=== PATIENT | female | born 1980 | race Hispanic/Latino ===

== ENCOUNTER 2018-01-05 08:14 | Day surgery (SDC) | payer MEDICARE ==
--- NOTE | 2018-01-04 16:54 | Short Stay Summary ---
Short Stay Documentation Date of service: 01/05/18 Narrative H&P: 37y/o with chronic pelvic pain. The patient has attempted medical management without improvement in her symptoms. Her pelvic ultrasound was significant for small ovarian cysts. Patient has been reassessed/reevaluated/re-examined. H&P has been reviewed. No interval changes. - History Principal diagnosis: Chronic pelvic pain Past Medical History: other (anxiety disorder) Past Surgical History: Other (neck surgery) Social history: single - Allergies and Medications Current Medications: Allergies Penicillins Allergy (Verified 12/31/17 12:41) Anaphylaxis ALSO CAUSES HIVES Sulfa (Sulfonamide Antibiotics) Allergy (Verified 12/31/17 12:41) Anaphylaxis ALSO CAUSES HIVES Home Medications Medication Instructions Recorded Confirmed Last Taken Type Gabapentin [Neurontin] 300 mg PO PRN PRN 11/26/16 12/31/17 12/02/16 02:00 History Rizatriptan Benzoate [Rizatriptan] 10 mg PO PRN PRN 12/31/17 12/31/17 Unknown History - Physical exam General appearance: no acute distress Integumentary: no rash HEENT: Atraumatic Lungs: Clear to auscultation Breasts: deferred Heart: Regular rate Gastrointestinal: normal Female Genitourinary: deferred Rectal Exam: deferred - Brief post op/procedure progress note Date of procedure: 01/05/18 Pre-op diagnosis: chronic pelvic pain Post-op diagnosis: same Procedure: Laparoscopy Ovarian cortex biopsy Left and right ovarian cystotomy Anesthesia: GETA Surgeon: MARIA TERESA CRISOSTOMO Estimated blood loss: minimal Pathology: list (ovarian cortex and ovarian cyst wall) Specimen disposition: to lab Condition: stable - Hospital course Hospital course: The patient was admitted the day of surgery and underwent a laparoscopy. Please see operative note for details of surgery. Postoperative course was uneventful. - Disposition Condition at discharge: Good Disposition: [id number] TO HOME OR SELFCARE Short Stay Discharge Plan Activity: other (pelvic rest for 1 week) Diet: regular Additional Instructions: Patient may follow up with Dr. Fitzgerald in 2-4 weeks Prescriptions: Ibuprofen [Motrin] 800 mg PO Q8HR PRN #60 tablet PRN Reason: Pain oxyCODONE /ACETAMINOPHEN [Percocet 5/325] 1 tab PO Q6HR PRN #30 tablet PRN Reason: Pain
--- NOTE | 2018-01-05 08:44 | Anesthesia Consultation ---
Anesthesia Consult and Med Hx Date of service: 01/05/18 - Airway Anesthetic Teeth Evaluation: Good ROM Head & Neck: Adequate Mental/Hyoid Distance: Adequate Mallampati Class: Class I Intubation Access Assessment: Good - Pulmonary Exam CTA: Yes - Cardiac Exam Cardiac Exam: RRR - Pre-Operative Health Status ASA Pre-Surgery Classification: ASA2 Proposed Anesthetic Plan: General - Pulmonary Hx Smoking: Yes Hx Pneumonia: Yes ("walking" pneumonia 10/2017 resolved) - Central Nervous System Hx Back Pain: Yes (NECK AND BACK PAIN, numb hands ) Hx Psychiatric Problems: Yes (PTSD) - Endocrine Hx Hypothyroidism: No Hx Hyperthyroidism: No - Hematic Hx Anemia: No Hx Sickle Cell Disease: No - Other Systems Hx Alcohol Use: Yes (occas) Hx Cancer: No
--- NOTE | 2018-01-05 08:44 | Anesthesia Day of Surgery ---
Anesthesia Day of Surgery - Day of Surgery Patient Examined: Yes Patient H&P Reviewed: Yes Patient is NPO: Yes
[2018-01-05] MEDS ORDERED: TORADOL IV PRN (08:45)
[2018-01-05] MEDS ORDERED: LACTATED RINGERS 1,000 ML IV SCH (09:00)
[2018-01-05] MEDS ORDERED: VERSED IV NR (09:00)
[2018-01-05] MEDS ORDERED: NACL BACTERIOSTATIC INFILTRATI ONE (09:26)
[2018-01-05] MEDS ORDERED: DILAUDID ONE (10:33)
[2018-01-05] MEDS ORDERED: DIPRIVAN 10 MG/ML IV ONE (10:33)
[2018-01-05] MEDS ORDERED: XYLOCAINE MPF 2% ONE (10:34)
[2018-01-05] MEDS ORDERED: ZEMURON IV ONE (10:34)
[2018-01-05] MEDS ORDERED: MARCAINE 0.5% 30 ML INFILTRATI ONE (10:39)
[2018-01-05] MEDS ORDERED: ZOFRAN ONE (11:17)
[2018-01-05] MEDS ORDERED: ROBINUL ONE ×2 (11:27→11:36)
[2018-01-05] MEDS ORDERED: NEOSTIGMINE ONE (11:27)
[2018-01-05] MEDS ORDERED: TORADOL ONE (11:28)
[2018-01-05] MEDS ORDERED: NACL 0.9% IR ONE (11:38)
[2018-01-05] MEDS ORDERED: MARCAINE 0.5% INFILTRATI ONE (11:38)
--- NOTE | 2018-01-05 11:49 | Operative Report ---
Operative Report Operative Report: Date of surgery: 01/05/2018 Preoperative diagnosis: Chronic pelvic pain Postoperative diagnosis: Same as above Procedure: Laparoscopy, biopsy of left ovarian cortex; bilateral ovarian cystotomy Surgeon: Nancy Fitzgerald M.D. Anesthesia: General endotracheal anesthesia Estimated blood loss: Minimal Findings: Normal uterus and tubes. A small dark lesion on the cortex of the left ovary, suspicious for endometriosis. Bilateral small ovarian simple cysts Pathology: Ovarian cortex Indication: 37-year-old 001 with a history of worsening chronic pelvic pain and dyspareunia. The patient had attempted medical management without improvement in her symptoms and elected to undergo laparoscopy for further evaluation. Procedure: The patient was taken to the operating room and given general endotracheal anesthesia without complication. The patient is prepped and draped in a normal sterile fashion. A bivalve speculum was placed in the patient's vagina and a single-tooth tenaculum was placed on the anterior lip of the cervix .A uterine acorn manipulato rwas placed, and the bivalve speculum was then removed. Attention was then turned to the patient's abdomen where a 5 mm infraumbilical skin incision was then made. A Veress needle was placed and peritoneal entry was verified water-filled syringe. Insufflation of the peritoneal cavity was performed with CO2 gas. A 5 mm trocar was placed and the laparoscope was then inserted. The patient was then placed in Trendelenburg. A 5 mm suprapubic skin incision was then made. Under direct visualization a 5 mm trocar was then placed. An additional left lateral 5 mm skin incision was made with placement of a 5 mm trocar. General survey of the patient's abdomen revealed normal uterus and tubes. Post findings of a small dark lesion on the cortex of the left ovary that was removed. The patient findings of bilateral small ovarian cysts. The monopolar scissors were used in order to remove the portion of the left ovarian cortex with a evaluation. The scissors were also used to cauterize the simple cysts on the ovaries bilaterally. There was evidence of clear riddhi fluid from the ovarian cysts. No endometriotic implants could be found in the posterior or anterior cul-de- sacs. The ovarian cortex will be sent for further evaluation to rule out endometriosis. The 5 mm trochars were then removed under direct visualization. The pneumoperitoneum was then released. The 5 mm trocar laparoscope was then removed. The skin incisions were then closed with 4-0 Monocryl. The incisions were injected with quarter percent Marcaine. Dressings were applied to the incision. The vaginal instruments were then removed atraumatically. Then successfully extubated and taken to the recovery room. All sponge laps and needle counts were correct 2.
[2018-01-05] MEDS: DILAUDID IV PRN ×2 (12:22→12:32)
[2018-01-05] MEDS ORDERED: PERCOCET 5/325 PO PRN (13:00)
--- NOTE | 2018-01-05 13:01 | Post Anesthesia Evaluation ---
- Post Anesthesia Evaluation Patient Participated: Yes Airway Patent: Yes Stable Respiratory Function: Yes Nausea/Vomiting: No Temp > 96.8F: Yes Pain Manageable: Yes Adequeate Hydration: Yes Anesthesia Complications: No
[2018-01-05 14:56] VITALS: BP 100/63
== END 2018-01-05 13:42 | disposition home or self-care (01) ==
LOC: OR 08:14
PROVIDERS: ATTEND Obstetrics & Gynecology
DX: N83.12 Corpus luteum cyst of left ovary (principal); N83.11 Corpus luteum cyst of right ovary; G89.29 Other chronic pain; F17.200 Nicotine dependence, unspecified, uncomplicated; F43.10 Post-traumatic stress disorder, unspecified; Z88.0 Allergy status to penicillin; Z88.2 Allergy status to sulfonamides
CPT/HCPCS: 49321; 58662; 81025; 88305; J1170; J1885; J2250; J2405; J2704; J2710; J7120